=== PATIENT | female | born 1940 | race Caucasian/White ===

== ENCOUNTER 2021-05-04 10:59 | Inpatient (IN) | payer MEDICARE, BC ==
[~2021-05-04] VITALS: Ht 165.1 cm; Wt 79.9 kg
--- NOTE | 2021-05-04 11:06 | NUR ---
THONG FRM HOME, SLIP AND FELL OF HER CHAIR UNABLE TO GET UP. SKIN LESIONS NOTED TO LOWER ABDOMEN/ L THIGH. STS DX OF SHINGLES X9DAYS. PT A/OX4. TOLERATING R/A WELL WITH NO SOB; SATTING AT 98%. SAFETY MEASURES IN PLACE
[2021-05-04] MEDS ORDERED: IV NS 0.9% 1,000 ML BAG IV ONE (11:30)
[2021-05-04] MEDS ORDERED: HYDROCODONE/APAP 5/325MG TABLET ONE (12:05)
--- NOTE | 2021-05-04 12:05 | NUR ---
RAC #20G S/L AND LFA #22G S/L PATENT AND INTACT. BLOOD COLLECTED AND SENT TO LAB. IVF NS INFUSING AT THIS TIME.
[2021-05-04 12:07] LABS: BASOPHILS # (AUTO) 0.1 K/uL (0.0-0.2); BASOPHILS % (AUTO) 0.6 % (0.0-2.0); EOSINOPHILS % (AUTO) 0.9 % (0.0-6.0); HEMATOCRIT 38 % (33-45); HEMOGLOBIN 12.5 g/dL (11.5-14.8); LYMPHOCYTES # (AUTO) 1.2 K/uL (0.8-4.8); LYMPHOCYTES % (AUTO) 9.6 % (20.0-44.0); MEAN CORPUSCULAR HGB CONC 33 g/dl (31.0-36.0); MEAN CORPUSCULAR VOLUME 87 fL (82-100); MONOCYTES % (AUTO) 7.8 % (2.0-12.0); NEUTROPHILS # (AUTO) 9.9 K/uL (1.8-8.9); NEUTROPHILS % (AUTO) 81.1 % (43.0-81.0); PLATELET COUNT (AUTO) 321 K/uL (150-450); RED BLOOD CELL COUNT(AUTO) 4.38 MIL/uL (4.0-5.2); WHITE BLOOD COUNT (AUTO) 12.2 K/uL (4.3-11.0)
[2021-05-04 12:17] LABS: CALCIUM, SERUM 9.1 mg/dL (8.5-10.1); CARBON DIOXIDE 22 mmol/L (21-32); CHLORIDE 95 mmol/L (98-107); CREATININE 4.3 mg/dL (0.6-1.3); GLUCOSE 93 mg/dL (74-106); SODIUM SERUM 131 mmol/L (136-145); UREA NITROGEN, BLOOD 52 mg/dL (7-18)
--- NOTE | 2021-05-04 12:17 | NUR ---
COVID SWAB COLLECTED AND SENT TO LAB
[2021-05-04] MEDS ORDERED: TRAM50TA2 PO (12:21)
[2021-05-04] MEDS ORDERED: NAPR-1009 PO (12:21)
[2021-05-04] MEDS ORDERED: PANT40TA49 PO (12:21)
[2021-05-04] MEDS ORDERED: LOSA100T31 PO (12:21)
--- NOTE | 2021-05-04 12:27 | NUR ---
PT TRANSFERRED TO CT VIA [facility]
[2021-05-04 12:30] LABS: THYROID STIMULATING HORMONE 0.891 uIU/mL (0.358-3.74)
[2021-05-04] MEDS ORDERED: HYDROCODONE/APAP 5/325MG TABLET PO ONE (12:30)
[2021-05-04 12:31] LABS: ALANINE AMINOTRANSFERASE 10 U/L (12-78); ALBUMIN 2.5 g/dL (3.4-5.0); ALKALINE PHOSPHATASE 127 U/L (46-116); ASPARTATE AMINOTRANSFERASE 31 U/L (15-37); BILIRUBIN,DIRECT 0.1 mg/dL (0.0-0.2); BILIRUBIN,TOTAL 1.1 mg/dL (0.2-1.0); TOTAL PROTEIN, SERUM 6.7 g/dL (6.4-8.2)
[2021-05-04] MEDS ORDERED: DEXTROSE 50%-WATER 50 ML DISP.SYRIN ONE (12:48)
[2021-05-04] MEDS ORDERED: SODIUM POLYSTYRENE SULFONATE 15 G/60 ML BOTTLE ONE (12:48)
[2021-05-04] MEDS ORDERED: Sodium Bicarbonate 50 MEQ/50 ML VIAL IV ONE (12:48)
[2021-05-04] MEDS ORDERED: SODIUM POLYSTYRENE SULFONATE 15 G/60 ML BOTTLE PO ONE (13:00)
[2021-05-04] MEDS ORDERED: Calcium Gluconate 1GM/10ML 4.65 MEQ in IV D5W 50 ML IV ONE (13:00)
[2021-05-04] MEDS ORDERED: DEXTROSE 50%-WATER 50 ML DISP.SYRIN IV ONE (13:00)
[2021-05-04] MEDS ORDERED: SODIUM BICARBONATE SYR 50 MEQ/50 ML DISP.SYRIN IV ONE (13:00)
--- NOTE | 2021-05-04 13:11 | NUR ---
CALLED NURSING FORGEMAN HELPER FOR TELE BED.
--- NOTE | 2021-05-04 13:19 | NUR ---
WOUND SWAB COLLECTED AND GIVEN TO LAB
--- NOTE | 2021-05-04 18:01 | NUR ---
GOING TO ROOM 259. AFTER SHIFT PER NURSING POCKET CREASER
--- NOTE | 2021-05-04 18:04 | NUR ---
US TECH AT PT'S BEDSIDE Addendum: 05/04/21 at 1805 by JULES ECHOCARDIOGRAM TECH AT PT'S BEDSIDE
--- NOTE | 2021-05-04 18:50 | NUR ---
KERZUMA AT PT'S BEDSIDE
[2021-05-04] MEDS ORDERED: ACETAMINOPHEN 325 MG TABLET PO PRN (19:00)
[2021-05-04] MEDS ORDERED: Z GUARD REMEDY 2 OZ OINT TP PRN (19:00)
[2021-05-04] MEDS ORDERED: MAG HYDROX/AL HYDROX/SIMETH 30 ML UDC PO PRN (19:00)
[2021-05-04] MEDS ORDERED: ZOLPIDEM TARTRATE 5 MG TABLET PO PRN (19:00)
[2021-05-04] MEDS ORDERED: MAGNESIUM HYDROXIDE 30 ML UDC PO PRN (19:00)
--- NOTE | 2021-05-04 19:15 | NUR ---
VAMP PRESSER AT PT'S BEDSIDE
--- NOTE | 2021-05-04 19:38 | NUR ---
REPORT GIVEN TO MIK MEDICAL OBSERVER FOR TATO
[2021-05-04 20:08] VITALS: BP 102/59
--- NOTE | 2021-05-04 20:10 | NUR ---
RECEIVED PT FROM ER VIA [facility] PT IS ALERT ORIENTED X4 ON ROOM AIR NO SIGN OF RESPIRATORY DISTRESS, SPO2 97% SAFELY TRANSFER FROM [facility] TO BED HOOKED TO MONITOR WITH READING SINUS RHYTHM 70'S, V/S CHECKED AND RECORDED, HEAD TO TOE ASSESSMENT DONE MULTIPLE SKIN LESION NOTED, PHOTO WAS TAKE AND RECORDED, INITIAL ADMISSION ASSESSMENT DONE, PT IS ABLE TO DRINK WATER, MARQUEZ CATHETER INSERTED NOTED MILKY URINE OUTPUT, SPECIMEN WILL SEND TO LAB, ROOM ORIENTATION DONE, PUT ON CONTACT ISOLATION DUE TO SHINGLES, BED ON LOWEST POSITION AND LOCKED SIDE RAILS UP X2 CALL LIGHT WITHIN REACH WILL CONT TO MONITOR
--- NOTE | 2021-05-04 20:10 | NUR ---
PT TRANSFERRED TO 259 VIA [facility]. ALL BELONGINGS WITH PT. VSS
[2021-05-04 21:00] VITALS: BP 114/58
[2021-05-04] MEDS: IV NS 0.9% 1,000 ML IV PRN (21:08)
[2021-05-04 22:00] VITALS: BP 97/61
[2021-05-04 23:00] VITALS: BP 99/58
[2021-05-05] VITALS (14 sets, daily range): BP systolic 85–119; BP diastolic 45–77
[2021-05-05 00:02] LABS: BILIRUBIN,URINE NEGATIVE (NEGATIVE); COLOR,URINE YELLOW (YELLOW); LEUKOCYTE ESTERASE ,URINE MODERATE (NEGATIVE); NITRITE, URINE NEGATIVE (NEGATIVE); PROTEIN,URINE 100 mg/dl (NEGATIVE); UGLUCOSE NEGATIVE (NEGATIVE); UROBILINOGEN,URINE 0.2 EU/dL (0.2)
[2021-05-05 00:23] LABS: BACTERIA,URINE Many /HPF (None Seen); RBC,URINE TOO NUMEROUS TO COUN /HPF (0-2); SQUAMOUS EPITHELIAL CELL,UR Many /HPF (None Seen); WBC,URINE TOO NUMEROUS TO COUN /HPF (0-3)
[2021-05-05 05:07] LABS: BASOPHILS % (AUTO) 0.6 % (0.0-2.0); EOSINOPHILS % (AUTO) 2.8 % (0.0-6.0); HEMATOCRIT 34 % (33-45); HEMOGLOBIN 11.4 g/dL (11.5-14.8); LYMPHOCYTES # (AUTO) 0.7 K/uL (0.8-4.8); LYMPHOCYTES % (AUTO) 9.5 % (20.0-44.0); MEAN CORPUSCULAR HGB CONC 34 g/dl (31.0-36.0); MEAN CORPUSCULAR VOLUME 87 fL (82-100); MONOCYTES # (AUTO) 0.5 K/uL (0.1-1.30); MONOCYTES % (AUTO) 6.9 % (2.0-12.0); NEUTROPHILS % (AUTO) 80.2 % (43.0-81.0); PLATELET COUNT (AUTO) 226 K/uL (150-450); WHITE BLOOD COUNT (AUTO) 7.5 K/uL (4.3-11.0)
[2021-05-05 05:47] LABS: CALCIUM, SERUM 8.6 mg/dL (8.5-10.1); CARBON DIOXIDE 25 mmol/L (21-32); CHLORIDE 102 mmol/L (98-107); CREATININE 3.5 mg/dL (0.6-1.3); GLUCOSE 73 mg/dL (74-106); MAGNESIUM 1.6 mg/dL (1.8-2.4); PHOSPHORUS 3.2 mg/dL (2.5-4.9); POTASSIUM 3.4 mmol/L (3.5-5.1); SODIUM SERUM 135 mmol/L (136-145); UREA NITROGEN, BLOOD 46 mg/dL (7-18)
[2021-05-05 05:52] LABS: THYROID STIMULATING HORMONE 0.718 uIU/mL (0.358-3.74)
--- NOTE | 2021-05-05 06:05 | NUR ---
reported to dr tobi santana that pt is complaining of pain on her left shoulder and the shingles that she had with order to give norco 5/325 q6h prn noted and carried out
[2021-05-05] MEDS: HYDROCODONE/APAP 5/325MG TABLET PO PRN ×3 (06:12→23:32)
[2021-05-05] MEDS ORDERED: PANTOPRAZOLE 40 MG TABLET.DR PO SCH (07:30)
--- NOTE | 2021-05-05 07:30 | NUR ---
RN NOTES PT FOUND SEMI DUBOSE'S POSITION DISPLAYING NO S/S OF DISTRESS, PT ENDORSES 6/10 PAIN SCALE AND BREATHING EVEN AND UNLABORED. PT ENDORSES LITTLE EFFECT OF NORCO GIVEN. PT REQUESTS A&D OINTMENT. RN TOLD PT THE MD WILL BE PROVIDED. MARQUEZ CATH IS BELOW PATIENT DRAINING BY GRAVITY. L WRIST 22G IV PATIENT AND INTACT. VSS, RN WILL MONITOR AND TREAT THROUGHOUT SHIFT. SAFETY MEASURES IN PLACE, BED LOCKED AND IN LOWEST POSITION, SIDE RAILS UPX2, CALL LIGHT JOANA HARVEY, PT INSTRUCTED TO CALL FOR ASSISTANCE.
[2021-05-05] MEDS ORDERED: Magnesium 1GM/D5W 100ML PREMIX 100 ML IV SCH (09:00)
[2021-05-05] MEDS: ASPIRIN 81 MG TAB.CHEW PO SCH (09:28)
[2021-05-05] MEDS: ONDANSETRON HCL/PF 4 MG/2 ML VIAL IVP PRN (09:28)
[2021-05-05] MEDS ORDERED: VITAMINS A AND D 56.7 GM TUBE TP PRN (09:30)
[2021-05-05] MEDS ORDERED: VITS A AND D/WHITE PET/LANOLIN 5 GM PACKET TP PRN (09:30)
[2021-05-05] MEDS: IV NS 0.9% 1,000 ML IV PRN ×2 (09:36→23:34)
[2021-05-05 09:59] LABS: CHOLESTEROL 144 mg/dL (<200); HDL CHOLESTEROL 31 mg/dL (40-60); LDL 93 mg/dL (0-99); TRIGLYCERIDES 138 mg/dL (30-150)
--- NOTE | 2021-05-05 10:50 | NUR ---
TRANSFER NOTE PT TRANSFERRED TO ROOM 114. PT IS CURRENTLY RESTING, FLACC = 0. BREATHING IS EVEN AND UNLABORED. PT CONTINUES TO BE A&OX4. PT PLACED ON MONITOR FOR TRANSPORT. VS WNL. PT TRANSPORTED VIA HOSPITAL BED ACCOMPANIED BY RN AND TREE PRUNER. SBAR AND REPORT GIVEN TO RN. CHART TRANSPORTED WELL. PT ENDORSED IN STABLE CONDITION FOR TATO.
--- NOTE | 2021-05-05 10:55 | NUR ---
Patient arrived via bed from ICU at 10:55am. Patient AO X 4, able to make needs known, can follow simple commands, no apparent distress noted, breathing even and unlabored, denies any pain or discomfort. Patient's vital signs within normal limits, no complained of facial numbness or weakness, no extremity numbness or weakness at this time. Skin intact, warm to touch, no pallor or cyanosis noted. Patient oriented with use of call lights, use of bed control, use of telephone and tv control, also introduces AWNING HANGER and RN assigned for today, verbalized understanding and gratitude. All belongings written in the inventory list. All needs attended, kept clean and dry, call light left within reach, safety precautions in place, brakes locked, side rails up X 2, will monitor closely for any changes
[2021-05-05 16:30] LABS: BILIRUBIN,URINE SMALL (NEGATIVE); COLOR,URINE YELLOW (YELLOW); LEUKOCYTE ESTERASE ,URINE MODERATE (NEGATIVE); NITRITE, URINE NEGATIVE (NEGATIVE); PROTEIN,URINE 30 mg/dl (NEGATIVE); UGLUCOSE NEGATIVE (NEGATIVE); UROBILINOGEN,URINE 0.2 EU/dL (0.2)
[2021-05-05 16:44] LABS: BACTERIA,URINE 4+ /HPF (None Seen); RBC,URINE 81-100 /HPF (0-2); SQUAMOUS EPITHELIAL CELL,UR 0-2 /HPF (None Seen); WBC,URINE TOO NUMEROUS TO COUN /HPF (0-3)
[2021-05-05 16:56] LABS: EOSINOPHIL,URINE RARE
[2021-05-05 17:27] LABS: CREATININE, URINE 137.1 MG/DL (30.0-125.0); URINE TOTAL PROTEIN 96.8 mg/dL (0-11.9)
--- NOTE | 2021-05-05 18:20 | NUR ---
RN CLOSING NOTES Patient lying in bed, AO X 4, no apparent distress noted, no SOB, respirations even and unlabored, no dizziness, no palpitation. All medications given per MD order, tolerating well. Pain medication given as needed when non pharmacological measures ineffective. Talbert catheter draining clear yellowish urine free from any sediments, no hematuria, and no unusual odor noted in urine, denies any bladder pain or discomfort, bladder non distended during shift. Kept clean and dry, all needs attended, call light left within reach, safety precautions in place, brakes locked, side rails up X 2, will endorse to next shift for continuity of care.
--- NOTE | 2021-05-05 20:10 | NUR ---
RN NOTE PATIENT ALERT AND ORIENTED X4. ON ROOM AIR, NO SIGNS OF SHORTNESS OF BREATH. DENIES ANY PAIN AT THIS TIME. IV ACCESS ON LEFT WRIST #22 PATENT AND INTACT. RUNNING NS @ 75ML/HR, NO S/S OF INFILTRATION. BED LOCKED AND IN LOWEST POSITION. CALL LIGHT WITHIN REACH. ALL NEEDS ANTICIPATED.
[2021-05-06] VITALS: BP 114/69
[2021-05-06 04:00] VITALS: BP 100/54
[2021-05-06] MEDS: HYDROCODONE/APAP 5/325MG TABLET PO PRN (06:44)
--- NOTE | 2021-05-06 07:30 | NUR ---
RN NOTE PATIENT ALERT AND ORIENTED X4. ON ROOM AIR O2 SAT 96%. DENIES ANY PAIN AT THIS TIME. IV ACCESS ON LEFT WRIST #22 PATENT AND INTACT. RUNNING NS @ 75ML/HR, NO S/S OF INFILTRATION. KEPT CLEAN AND DRY. BED LOCKED AND IN LOWEST POSITION. CALL LIGHT WITHIN REACH. ENDORSED TO AM SHIFT.
--- NOTE | 2021-05-06 07:39 | NUR ---
RN OPENING NOTES; RECEIVED PT IN BED, IN SUPINE POS. PT A/OX4, ON RA AND TOLERATING IT WELL WITH 02 SAT @98%. IV ACCESS PATENT, AND RUNNING WITH NO SIGNS OF INFILTRATION. ALL SAFETY MEASURES RENDERED, BED LOCKED, IN LOWEST POS. SIDE RAILS UP X3, WITH CALL LIGHT WITHIN REACH. WILL CONTINUE TO MONITOR.
[2021-05-06 08:00] VITALS: BP 115/58
[2021-05-06] MEDS: PANTOPRAZOLE 40 MG TABLET.DR PO SCH (08:33)
[2021-05-06] MEDS: ASPIRIN 81 MG TAB.CHEW PO SCH (08:33)
--- NOTE | 2021-05-06 08:41 | NUR ---
WOUND CARE CONSULT: PT PRESENTS WITH SOME DRY LESIONS AND MULTIPLE OPEN LESIONS TO BODY AND LOWER EXTREMITY, PRESENT ON ADMISSION. RECOMMEND SURGICAL AND DPM CONSULTS. MARQUEZ CATH NOTED. PT ON TERA ISOFLEX LOW AIRLOSS BED. RECOMMENDATIONS MADE FOR SKIN PROTECTION AND WOUND CARE. DISCUSSED WITH NURSING STAFF. MD IN AGREEMENT WITH PLAN OF CARE.
[2021-05-06] MEDS: IV NS 0.9% 1,000 ML IV PRN (11:26)
[2021-05-06 12:00] VITALS: BP 105/66
[2021-05-06 16:00] VITALS: BP 111/60
[2021-05-06 16:55] LABS: BASOPHILS # (AUTO) 0.1 K/uL (0.0-0.2); BASOPHILS % (AUTO) 0.7 % (0.0-2.0); EOSINOPHILS % (AUTO) 3.6 % (0.0-6.0); HEMATOCRIT 39 % (33-45); HEMOGLOBIN 12.6 g/dL (11.5-14.8); LYMPHOCYTES # (AUTO) 0.8 K/uL (0.8-4.8); LYMPHOCYTES % (AUTO) 6.3 % (20.0-44.0); MEAN CORPUSCULAR HGB CONC 32 g/dl (31.0-36.0); MEAN CORPUSCULAR VOLUME 88 fL (82-100); MONOCYTES # (AUTO) 0.6 K/uL (0.1-1.30); MONOCYTES % (AUTO) 4.5 % (2.0-12.0); NEUTROPHILS # (AUTO) 10.4 K/uL (1.8-8.9); NEUTROPHILS % (AUTO) 84.9 % (43.0-81.0); PLATELET COUNT (AUTO) 183 K/uL (150-450); RED BLOOD CELL COUNT(AUTO) 4.45 MIL/uL (4.0-5.2); WHITE BLOOD COUNT (AUTO) 12.2 K/uL (4.3-11.0)
[2021-05-06 17:37] LABS: ALANINE AMINOTRANSFERASE 9 U/L (12-78); ALBUMIN 1.9 g/dL (3.4-5.0); ALKALINE PHOSPHATASE 146 U/L (46-116); ASPARTATE AMINOTRANSFERASE 22 U/L (15-37); BILIRUBIN,TOTAL 0.6 mg/dL (0.2-1.0); CALCIUM, SERUM 8.2 mg/dL (8.5-10.1); CARBON DIOXIDE 21 mmol/L (21-32); CHLORIDE 101 mmol/L (98-107); CREATININE 2.5 mg/dL (0.6-1.3); GLUCOSE 78 mg/dL (74-106); MAGNESIUM 1.6 mg/dL (1.8-2.4); PHOSPHORUS 2.9 mg/dL (2.5-4.9); POTASSIUM 3.2 mmol/L (3.5-5.1); SODIUM SERUM 134 mmol/L (136-145); TOTAL PROTEIN, SERUM 5.4 g/dL (6.4-8.2); UREA NITROGEN, BLOOD 41 mg/dL (7-18)
[2021-05-06] MEDS ORDERED: MINERAL OIL/PETROLATUM,WHITE 120 GM JAR TP PRN (18:30)
--- NOTE | 2021-05-06 18:30 | NUR ---
RN CLOSING NOTES; PT A/OX4, NO SOB NOTED, NO C/O PAIN AT THIS TIME. NO DISTRESS NOTED. ALL MEDICATION GIVEN AND TOLERATED WELL. PT KEPT CLEAN, DRY, AND COMFORTABLE. DRESSING DONE TO COVER UP RASHES. ALL SAFETY MEASURES RENDERED, BED IN LOWEST POS. LOCKED WITH CALL LIGHT WITHIN REACH. NO SIGNIFICANT CHANGES IN PT HEALTH STATUS DURING SHIFT. WILL ENDORSE TO BOAT OFFICER. PT IN STABLE CONDITION.
--- NOTE | 2021-05-06 19:47 | NUR ---
RN NOTE PATIENT ALERT AND ORIENTED X4. ON ROOM AIR, NO OF RESPIRATORY DISTRESS. RESPIRATIONS EVEN AND UNLABORED. DENIES ANY PAIN AT THIS TIME. IV ACCESS ON LEFT WRIST #22 PATENT AND INTACT. RUNNING NS @ 75ML/HR, NO S/S OF INFILTRATION. MARQUEZ CATH PATENT AND INTACT, DRAINING URINE VIA GRAVITY. BED LOCKED AND IN LOWEST POSITION. CALL LIGHT WITHIN REACH. ALL NEEDS ANTICIPATED.
[2021-05-06 20:00] VITALS: BP 133/73
[2021-05-06] MEDS: MUPIROCIN OINT 2% 22 GM TUBE NS SCH (20:38)
[2021-05-07] VITALS: BP 119/81
[2021-05-07] MEDS: HYDROCODONE/APAP 5/325MG TABLET PO PRN ×2 (02:06→09:06)
--- NOTE | 2021-05-07 02:16 | NUR ---
TRANSFERRED PATIENT TO ROOM 314-2. PATIENT IN STABLE CONDITION. ALL BELONGINGS AND MEDICATION TRANSFERRED WITH PATIENT. REPORT GIVEN TO JAMAR FOR CONTINUITY OF CARE.
[2021-05-07 02:20] VITALS: BP 119/56
[2021-05-07] MEDS: IV NS 0.9% 1,000 ML IV PRN (02:52)
[2021-05-07 04:00] VITALS: BP 135/67
--- NOTE | 2021-05-07 04:46 | NUR ---
Patient transferred to unit at 0220 accompanied by RN and CUSTOMER SERVICE OFFICER. A&Ox4 in stable condition. Initial VS: B/P 119/56, HR 88, O2 sat 99%, temp 97.8, RR 18. No signs of distress. Only c/o is that patient is cold and that is making her joints hurt. [place] given by BERTO nurse, warm blanket given on unit. Patient dressings c/d/i over multiple body sites. Talbert cath noted to have yellow, clear output. L wrist #22G patent and flushed, attached pt. to IVF NS at 75cc/hr. Attached patient to tele monitor.
--- NOTE | 2021-05-07 07:00 | NUR ---
No overnight events. Patient connected to hydration NS at 75cc/hr. Sinus arrhythmia on monitor with occasional PVCs. Is able to make needs known. denies needs at this time. Safety measures in place.
--- NOTE | 2021-05-07 07:20 | NUR ---
OPERATIONS ACCOUNTANT OPENING NOTE RECEIVED PATIENT IN BED, A/OX 4, PATIENT IS ON ROOM AIR, DENIES SOB, IN NO APPARENT DISTRESS. PATIENT IS WITH TELE MONITOR AND READING SINUS RHYTHM WITH PVC NOTED. IV ACCESS LEFT WRIST # 22G AND RUNNING NS @ 75CC/HR IS RUNNING. INTACT AND PATENT. MARQUEZ CATHETER IS IN PLACE AND DRAINING YELLOW URINE. SAFETY MEASURES PROVIDED. LOW BED, BRAKES LOCKED, SIDE RAILS UP X 2. CALL LIGHT WITHIN THE REACH. WILL CONTINUE TO MONITOR.
[2021-05-07 08:00] VITALS: BP 98/62
[2021-05-07] MEDS: ASPIRIN 81 MG TAB.CHEW PO SCH (08:47)
[2021-05-07] MEDS: PANTOPRAZOLE 40 MG TABLET.DR PO SCH (08:47)
[2021-05-07] MEDS: MUPIROCIN OINT 2% 22 GM TUBE NS SCH ×2 (09:07→21:00)
[2021-05-07] MEDS: POTASSIUM CHLORIDE 20 MEQ TAB.PRT.SR PO SCH ×3 (10:16→12:28)
[2021-05-07] MEDS ORDERED: VANCOMYCIN 1 GM in IV D5W 250 ML IV SCH (11:00)
[2021-05-07 11:43] LABS: ALANINE AMINOTRANSFERASE 10 U/L (12-78); ALBUMIN 1.5 g/dL (3.4-5.0); ALKALINE PHOSPHATASE 116 U/L (46-116); ASPARTATE AMINOTRANSFERASE 16 U/L (15-37); BILIRUBIN,TOTAL 0.5 mg/dL (0.2-1.0); CALCIUM, SERUM 7.7 mg/dL (8.5-10.1); CARBON DIOXIDE 22 mmol/L (21-32); CHLORIDE 103 mmol/L (98-107); CREATININE 2.1 mg/dL (0.6-1.3); GLUCOSE 111 mg/dL (74-106); MAGNESIUM 1.6 mg/dL (1.8-2.4); PHOSPHORUS 2.4 mg/dL (2.5-4.9); POTASSIUM 3.2 mmol/L (3.5-5.1); SODIUM SERUM 133 mmol/L (136-145); TOTAL PROTEIN, SERUM 4.4 g/dL (6.4-8.2); UREA NITROGEN, BLOOD 38 mg/dL (7-18)
[2021-05-07 11:50] LABS: BASOPHILS # (AUTO) 0.1 K/uL (0.0-0.2); BASOPHILS % (AUTO) 0.8 % (0.0-2.0); HEMATOCRIT 32 % (33-45); HEMOGLOBIN 10.7 g/dL (11.5-14.8); LYMPHOCYTES # (AUTO) 0.7 K/uL (0.8-4.8); LYMPHOCYTES % (AUTO) 6.8 % (20.0-44.0); MEAN CORPUSCULAR HGB CONC 34 g/dl (31.0-36.0); MEAN CORPUSCULAR VOLUME 87 fL (82-100); MONOCYTES # (AUTO) 0.7 K/uL (0.1-1.30); NEUTROPHILS # (AUTO) 8.1 K/uL (1.8-8.9); NEUTROPHILS % (AUTO) 82.4 % (43.0-81.0); PLATELET COUNT (AUTO) 169 K/uL (150-450); RED BLOOD CELL COUNT(AUTO) 3.68 MIL/uL (4.0-5.2); WHITE BLOOD COUNT (AUTO) 9.9 K/uL (4.3-11.0)
[2021-05-07] MEDS ORDERED: VALACYCLOVIR HCL 500 MG TABLET PO SCH ×3 (13:00)
[2021-05-07] MEDS ORDERED: K PHOS NEUTRAL 250 MG TABLET PO ONE (15:30)
[2021-05-07 16:00] VITALS: BP 133/81
[2021-05-07] MEDS: CEFTRIAXONE 2 G in IV D5W 100 ML IV SCH (16:18)
[2021-05-07] MEDS: GABAPENTIN 300 MG CAPSULE PO SCH (16:58)
[2021-05-07] MEDS ORDERED: GABAPENTIN 300 MG CAPSULE PO SCH (17:00)
--- NOTE | 2021-05-07 18:20 | NUR ---
MS RN CLOSING NOTE PATIENT RESTING IN BED, A/OX 4, PATIENT IS ON ROOM AIR, DENIES SOB, IN NO APPARENT DISTRESS. IV ACCESS HAVEN # 22G, RUNNING NS @ 75CC/HR IS RUNNING. INTACT AND PATENT. MARQUEZ CATHETER IN PLACE AND DRAINING YELLOW URINE. SAFETY MEASURES PROVIDED. LOW BED, BRAKES LOCKED, SIDE RAILS UP X 2. CALL LIGHT WITHIN THE REACH. WILL ENDORSE TO NIGHT NURSE.
--- NOTE | 2021-05-07 19:30 | NUR ---
MS RN NOTE RECEIVED PATIENT IN ROOM. A/OX4. NO S/S OF APPARENT DISTRESS. DENIES PAIN. PATIENT UNCOOPERATIVE AT THE MOMENT. REFUSING HEAD TO TOE ASSESSMENT. IV NS RUNNING @75CC/HR. MARQUEZ CATHETER IN PLACE. SAFETY IN PLACE. WILL CONTINUE TO MONITOR PATIENT.
--- NOTE | 2021-05-07 20:23 | NUR ---
MS RN NOTE PATIENT REFUSED V/S AND ASSESSMENTS. PER PATIENT "OH PLEASE GIVE ME A BREAK" "IT'S STILL THERE" "I'M STILL ALIVE" "I JUST WANT TO SLEEP".
[2021-05-08] MEDS: HYDROCODONE/APAP 5/325MG TABLET PO PRN ×2 (05:19→17:39)
--- NOTE | 2021-05-08 06:30 | NUR ---
MS RN NOTE PATIENT HAS NO IV AT THE MOMENT. ORDERED MIDLINE. PATIENT HARD STICK.
--- NOTE | 2021-05-08 07:10 | NUR ---
RN OPENING NOTE RECEIVED PATIENT IN BED, A/OX 4, PATIENT IS ON ROOM AIR, DENIES SOB, IN NO APPARENT DISTRESS. MARQUEZ CATHETER IS IN PLACE AND DRAINING YELLOW URINE. SAFETY MEASURES PROVIDED. LOW BED, BRAKES LOCKED, SIDE RAILS UP X 2. CALL LIGHT WITHIN THE REACH. WILL CONTINUE PLAN OF CARE.
--- NOTE | 2021-05-08 07:32 | NUR ---
MS RN NOTE REPORT GIVEN TO DANA FOR CONTINUITY OF CARE.
[2021-05-08 08:00] VITALS: BP 121/67
[2021-05-08] MEDS: GABAPENTIN 300 MG CAPSULE PO SCH (08:20)
[2021-05-08] MEDS: ASPIRIN 81 MG TAB.CHEW PO SCH (08:20)
[2021-05-08] MEDS: PANTOPRAZOLE 40 MG TABLET.DR PO SCH (08:20)
[2021-05-08] MEDS: MUPIROCIN OINT 2% 22 GM TUBE NS SCH ×2 (08:41→20:52)
[2021-05-08] MEDS ORDERED: VANCOMYCIN 0.75 GM in IV D5W 250 ML IV SCH (11:00)
[2021-05-08] MEDS ORDERED: K PHOS NEUTRAL 250 MG TABLET PO ONE (12:00)
[2021-05-08] MEDS: CEFTRIAXONE 2 G in IV D5W 100 ML IV SCH (15:17)
--- NOTE | 2021-05-08 18:10 | NUR ---
MS RN CLOSING NOTE PATIENT RESTING IN BED, A/OX 4, ABLE TO MAKE NEEDS KNOWN. PATIENT IS ON ROOM AIR, DENIES SOB, IN NO APPARENT DISTRESS. MARQUEZ CATHETER IN PLACE AND DRAINING YELLOW URINE. SAFETY MEASURES PROVIDED. LOW BED, BRAKES LOCKED, SIDE RAILS UP X 2. CALL LIGHT WITHIN THE REACH. WILL ENDORSE TO NIGHT NURSE.
--- NOTE | 2021-05-08 19:30 | NUR ---
MS RN NOTE RECEIVED PATIENT IN ROOM. A/OX4. ABLE TO MAKE NEEDS KNOWN. NO S/S OF APPARENT DISTRESS. DENIES PAIN. PATIENT HAS NO IV LINES AT THIS TIME -- ENDORSED TO ME LIKE THAT AND THAT MD AWARE. MARQUEZ CATHETER IN PLACE DRAINING YELLOW URINE WITH SEDIMENTS MULTIPLE WOUNDS NOTED. SAFETY IN PLACE. WILL CONTINUE TO MONITOR PATIENT.
[2021-05-08 19:49] LABS: CALCIUM, SERUM 7.8 mg/dL (8.5-10.1); CARBON DIOXIDE 25 mmol/L (21-32); CHLORIDE 104 mmol/L (98-107); CREATININE 1.8 mg/dL (0.6-1.3); GLUCOSE 114 mg/dL (74-106); MAGNESIUM 1.4 mg/dL (1.8-2.4); POTASSIUM 3.6 mmol/L (3.5-5.1); SODIUM SERUM 134 mmol/L (136-145); UREA NITROGEN, BLOOD 32 mg/dL (7-18)
[2021-05-08 20:00] VITALS: BP 98/65
[2021-05-08 20:17] LABS: BASOPHILS # (AUTO) 0.1 K/uL (0.0-0.2); BASOPHILS % (AUTO) 1.5 % (0.0-2.0); EOSINOPHILS % (AUTO) 4.8 % (0.0-6.0); HEMATOCRIT 36 % (33-45); HEMOGLOBIN 11.8 g/dL (11.5-14.8); LYMPHOCYTES # (AUTO) 0.9 K/uL (0.8-4.8); LYMPHOCYTES % (AUTO) 11.7 % (20.0-44.0); MEAN CORPUSCULAR HGB CONC 33 g/dl (31.0-36.0); MEAN CORPUSCULAR VOLUME 88 fL (82-100); MONOCYTES # (AUTO) 0.7 K/uL (0.1-1.30); MONOCYTES % (AUTO) 8.9 % (2.0-12.0); NEUTROPHILS # (AUTO) 5.6 K/uL (1.8-8.9); NEUTROPHILS % (AUTO) 73.1 % (43.0-81.0); PLATELET COUNT (AUTO) 193 K/uL (150-450); RED BLOOD CELL COUNT(AUTO) 4.06 MIL/uL (4.0-5.2); WHITE BLOOD COUNT (AUTO) 7.7 K/uL (4.3-11.0)
[2021-05-08] MEDS: DOXYCYCLINE HYCLATE (100 MG) 100 MG TABLET PO SCH (20:51)
[2021-05-08] MEDS: Magnesium 1GM/D5W 100ML PREMIX 100 ML IV SCH (23:30)
[2021-05-09] MEDS: Magnesium 1GM/D5W 100ML PREMIX 100 ML IV SCH ×3 (00:30→10:00)
--- NOTE | 2021-05-09 01:05 | NUR ---
MS RN NOTE DOCTOR KARLOS ORDERED IV MAGNESIUM BUT PATIENT HAS NO IV LINE, DOCTORS AWARE. PATIENT IS A HARD STICK AND EVEN MIDLINE DOES NOT WORK. MESSAGED DOCTOR IF WE COULD CHANGE IV MAGNESIUM TO PO. DOCTOR ORDERED 800 MG MAG OXIDE PO ONCE. WILL FOLLOW THROUGH ORDER.
[2021-05-09] MEDS ORDERED: MAGNESIUM OXIDE 400 MG TABLET PO ONE (01:30)
[2021-05-09] MEDS: ONDANSETRON HCL/PF 4 MG/2 ML VIAL IVP PRN ×2 (01:31→01:36)
--- NOTE | 2021-05-09 01:31 | NUR ---
MS CHEN NOTE PATIENT FEELING NAUSEOUS AT THE MOMENT. CANNOT GIVE MAG OXIDE YET. GIVEN ARCHANA FOR NOW. Addendum: 05/09/21 at 0134 by CHRIS DUNHAM RN DISREGARD THIS NOTE.
--- NOTE | 2021-05-09 01:36 | NUR ---
MS RN NOTE ZOFRAN NOT GIVEN. PATIENT DOES NOT IV LINE AT THIS TIME. BUT MEDICATION WAS ALREADY DRAWN OUT OF THE VIAL. WASTED IN THE PROPER BIN. CHARGE NURSE AWARE.
--- NOTE | 2021-05-09 06:29 | NUR ---
MS RN CLOSING NOTE PATIENT IN BED WITH EYES CLOSED, EASY TO AROUSE. A/OX4. NO S/S OF APPARENT DISTRESS ON ROOM AIR. NO C/O PAIN. NO IV ACCESS. ALL NEEDS ATTENDED. WOUND TREATMENT AND DRESSING CHANGED. MARQUEZ DRAINING ALLYSSA YELLOW URINE WITH 200 ML URINE OUTPUT. DAILY WEIGHT 176.8 LBS. SCHEDULED MEDS ADMINISTERED. SAFETY KEPT IN PLACE THE WHOLE SHIFT. WILL ENDORSE TO MORNING SHIFT RN FOR CONTINUITY OF CARE.
[2021-05-09 07:19] LABS: CALCIUM, SERUM 7.9 mg/dL (8.5-10.1); CARBON DIOXIDE 24 mmol/L (21-32); CHLORIDE 105 mmol/L (98-107); CREATININE 1.7 mg/dL (0.6-1.3); GLUCOSE 82 mg/dL (74-106); MAGNESIUM 1.4 mg/dL (1.8-2.4); PHOSPHORUS 3.6 mg/dL (2.5-4.9); POTASSIUM 3.4 mmol/L (3.5-5.1); SODIUM SERUM 137 mmol/L (136-145); UREA NITROGEN, BLOOD 31 mg/dL (7-18)
--- NOTE | 2021-05-09 07:31 | NUR ---
RN OPENING NOTE PATIENT IN BED, SLEEPING, AWAKENS TO VERBAL STIMULI. A/O X4. NO S/S OF PAIN NOTED AT THIS TIME. ON ROOM AIR, NO DISTRESS OF SHORTNESS OF BREATH NOTED. NO IV ACCESS. FALL AND SAFETY MEASURES IN PLACE, BED ALARM ON, BE IN LOW AND LOCK POSITION, CALL LIGHT WITHIN EASY REACH, SIDE RAILS UP X2. WILL CONTINUE TO MONITOR.
[2021-05-09 08:00] VITALS: BP 108/62
[2021-05-09] MEDS: GABAPENTIN 300 MG CAPSULE PO SCH ×2 (09:50→09:55)
[2021-05-09] MEDS: PANTOPRAZOLE 40 MG TABLET.DR PO SCH ×2 (09:51→09:55)
[2021-05-09] MEDS: DOXYCYCLINE HYCLATE (100 MG) 100 MG TABLET PO SCH ×2 (09:51→09:55)
[2021-05-09] MEDS: POTASSIUM CHLORIDE 20 MEQ TAB.PRT.SR PO SCH ×3 (09:51→11:20)
[2021-05-09] MEDS: ASPIRIN 81 MG TAB.CHEW PO SCH ×2 (09:52→09:55)
[2021-05-09] MEDS: MUPIROCIN OINT 2% 22 GM TUBE NS SCH (10:01)
[2021-05-09 10:05] LABS: BASOPHILS # (AUTO) 0.1 K/uL (0.0-0.2); BASOPHILS % (AUTO) 1.2 % (0.0-2.0); EOSINOPHILS % (AUTO) 4.5 % (0.0-6.0); HEMATOCRIT 35 % (33-45); HEMOGLOBIN 11.6 g/dL (11.5-14.8); LYMPHOCYTES % (AUTO) 13.4 % (20.0-44.0); MEAN CORPUSCULAR HGB CONC 33 g/dl (31.0-36.0); MEAN CORPUSCULAR VOLUME 87 fL (82-100); MONOCYTES # (AUTO) 0.8 K/uL (0.1-1.30); MONOCYTES % (AUTO) 10.4 % (2.0-12.0); NEUTROPHILS # (AUTO) 5.1 K/uL (1.8-8.9); NEUTROPHILS % (AUTO) 70.5 % (43.0-81.0); PLATELET COUNT (AUTO) 206 K/uL (150-450); RED BLOOD CELL COUNT(AUTO) 4.02 MIL/uL (4.0-5.2); WHITE BLOOD COUNT (AUTO) 7.2 K/uL (4.3-11.0)
[2021-05-09] MEDS ORDERED: AMOX/CLAVULANATE 875 MG TABLET PO SCH (12:30)
[2021-05-09] MEDS ORDERED: AMOX/CLAVULANATE 250 MG TABLET PO SCH (13:00)
[2021-05-09] MEDS: HYDROCODONE/APAP 5/325MG TABLET PO PRN (14:59)
--- NOTE | 2021-05-09 15:05 | NUR ---
RN NOTE PT REFUSED SOME DISCHARGE WOUND DOCUMENTATION, STATING THAT SHE WANTS TO REST. ACCEPTED WOUND PICS ARE PLACED IN CHART AND WOUND CARE DONE.
--- NOTE | 2021-05-09 17:06 | NUR ---
LOAN APPROVER NOTE PATIENT DISCHARGE IN STABLE CONDITION. A/O X4. V/S STABLES. NO IV ACCESS. SOME SKIN ASSESSMENT REFUSED BY PATIENT, PICTURES TAKEN. NAME ARM BAND REMOVED. ALL BELONGINGS CHECKED AND SIGNED. HEALTH TEACHING AND DISCHARGE INSTRUCTIONS GIVEN TO PATIENT AND VERBALIZED UNDERSTANDING. PATIENT LEFT UNIT VIA GURNEY WITH NO SIGNS OF DISTRESS, ACCOMPANIED BY PARAMEDICS. PATIENT WENT TO [facility], [place], REPORT GIVEN TO MARYANN. CHARGE NURSE AWARE OF DISCHARGE.
== END 2021-05-09 16:30 | DRG 682 ==
LOC: EDBD 11:03 → ER 11:03 → ICU 18:11 → TELE1 05-05 10:06 → TELE 05-07 03:35 → MED 05-07 10:18
PROVIDERS: ADMIT Student in an Organized Health Care Education/Training Program; ATTEND Nurse Practitioner Family
PROC: 05H933Z Insertion of Infusion Device into Right Brachial Vein, Percutaneous Approach (ICD-10-PCS; principal; 2021-05-08)
DX: N17.0 Acute kidney failure with tubular necrosis (principal); I21.A1 Myocardial infarction type 2; E44.0 Moderate protein-calorie malnutrition; E87.1 Hypo-osmolality and hyponatremia; L03.115 Cellulitis of right lower limb; B02.8 Zoster with other complications; E86.9 Volume depletion, unspecified; N18.9 Chronic kidney disease, unspecified; E87.5 Hyperkalemia; I12.9 Hypertensive chronic kidney disease with stage 1 through stage 4 chronic kidney disease, or unspecified chronic kidney disease; B02.9 Zoster without complications; Z88.8 Allergy status to other drugs, medicaments and biological substances; Z79.899 Other long term (current) drug therapy; Z87.440 Personal history of urinary (tract) infections; Z87.891 Personal history of nicotine dependence; Z86.14 Personal history of Methicillin resistant Staphylococcus aureus infection; L84 Corns and callosities; Y92.002 Bathroom of unspecified non-institutional (private) residence as the place of occurrence of the external cause; W18.2XXA Fall in (into) shower or empty bathtub, initial encounter; E83.42 Hypomagnesemia; D64.9 Anemia, unspecified; D32.9 Benign neoplasm of meninges, unspecified; I70.0 Atherosclerosis of aorta; M20.40 Other hammer toe(s) (acquired), unspecified foot; M21.00 Valgus deformity, not elsewhere classified, unspecified site; N12 Tubulo-interstitial nephritis, not specified as acute or chronic
CPT/HCPCS: 36410; 36415; 70450-TC; 71045-TC; 73620-TC; 76770-TC; 80048-TC; 80053-TC; 80061-TC; 80076-TC; 81001; 82550-TC; 82570-TC; 82962-TC; 83605-TC; 83735-TC; 83970; 84100-TC; 84155-TC; 84300-TC; 84443-TC; 84484-TC; 85025-TC; 85730-TC; 86803; 87040-TC; 87070-TC; 87081-TC; 87086-TC; 87806; 93307-TC; 97110-TC; 97112-TC; 97530-TC; A6253; A6403; C9803; G0378; J0610; J0696; J2405; J3370; J3475; J7030; J7060